=== PATIENT | female | born 2000 | race Caucasian/White ===

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

== ENCOUNTER 2021-06-16 00:16 | Emergency (ER) | payer OTHER ==
[~2021-06-16] VITALS: Ht 172.7 cm; Wt 84.0 kg
[~2021-06-16 00:16] MED LIST changes: +FLUC100T7 PO; +SULF1TAB24 PO
--- NOTE | 2021-06-16 00:18 | PHYS DOC ---
Past History Past Medical History: Asthma, UTI Past Surgical History: No Surgical History Smoking: Non-smoker Alcohol Use: None Drug Use: None General Adult HPI: HPI: "... I think I have another UTI.. discomfort lower pelvic area... I feels like when I had a UTI before... " Patient is a 20 year old female who presents with above hx and complaints dysuria. Symptoms are similar to previous UTI. Patient denies any vaginal discharge or fears of STD. No history of suppression. No history of travel history of significant ll contacts. Has not had COVID vaccination or flu vaccination. Has had meningitis vaccination. Has not had a Pneumovax vaccination. Review of Systems: Review of Systems: Constitutional: Denies fever or chills Eyes: Denies change in visual acuity HENT: Denies nasal congestion or sore throat Respiratory: Denies cough or shortness of breath Cardiovascular: Denies chest pain or edema GI: Denies abdominal pain, nausea, vomiting, bloody stools or diarrhea : Complains of dysuria Musculoskeletal: Denies back pain or joint pain Integument: Denies rash Neurologic: Denies headache, focal weakness or sensory changes Endocrine: Denies polyuria or polydipsia Lymphatic: Denies swollen glands Psychiatric: Denies depression or anxiety Family History: Family History: Noncontributory to presentation Current Medications: Current Meds: See nursing for home meds Allergies: Allergies: Allergies Coded Allergies Type Severity Reaction Last Updated Verified cephalexin Allergy Intermediate 07/07/19 Yes Physical Exam: PE: Constitutional: Well developed, well nourished, no acute distress, non-toxic appearance. [] HENT: Normocephalic, atraumatic, bilateral external ears normal, oropharynx moist, no oral exudates, nose normal. [] Eyes: PERRLA, EOMI, conjunctiva normal, no discharge. [] Neck: Normal range of motion, no tenderness, supple, no stridor. [] Cardiovascular:Heart rate regular rhythm, no murmur [] Lungs & Thorax: Bilateral breath sounds clear to auscultation [] Abdomen: Bowel sounds normal, soft, no tenderness, no masses, no pulsatile masses. Mild suprapubic tenderness. Skin: Warm, dry, no erythema, no rash. [] Back: No tenderness, no CVA tenderness. [] Extremities: No tenderness, no cyanosis, no clubbing, ROM intact, no edema. [] Neurologic: Alert and oriented X 3, normal motor function, normal sensory function, no focal deficits noted. [] Psychologic: Affect normal, judgement normal, mood normal. [] EKG: EKG: [] Radiology/Procedures: Radiology/Procedures: [] Heart Score: C/O Chest Pain: N/A Risk Factors: Risk Factors: DM, Current or recent (<one month) smoker, HTN, HLP, family history of CAD, obesity. Risk Scores: Score 0 - 3: 2.5% MACE over next 6 weeks - Discharge Home Score 4 - 6: 20.3% MACE over next 6 weeks - Admit for Clinical Observation Score 7 - 10: 72.7% MACE over next 6 weeks - Early Invasive Strategies Course & Med Decision Making: Course & Med Decision Making Pertinent Labs and Imaging studies reviewed. (See chart for details) Push vitamin C drinks. Push fluids. Take Tylenol and ibuprofen for discomfort. Take Bactrim DS twice a day. Follow-up urine cultures. After completing Bactrim take Diflucan 100 mg daily for 3 days. Follow-up primary care. Return if any concerns. Impression: 1. Dysuria [] Dragon Disclaimer: Dragon Disclaimer: This electronic medical record was generated, in whole or in part, using a voice recognition dictation system. Departure Departure: Referrals: SERGIO ZHU (PCP) Scripts Fluconazole (DIFLUCAN) 100 Mg Tablet 100 MG PO DAILY for post antibiotics, #3 TAB Prov: KEDAR GONZALES MD 06/16/21 Sulfamethoxazole/Trimethoprim (BACTRIM DS TABLET) 1 Each Tablet 1 TAB PO BID for UTI for 7 Days, #14 TAB 0 Refills Prov: KEDAR GONZALES MD 06/16/21 KEDAR GONZALES MD Jun 16, 2021 00:18
[2021-06-16 00:20] VITALS: BP 121/73
[2021-06-16 01:18] LABS: U PREG PATIENT NEGATIVE (NEG)
[2021-06-16 01:23] LABS: BARBITURATES NEG (NEG); BENZODIAZEPINES NEG (NEG); CANNABINOIDS NEG (NEG); COCAINE NEG (NEG); METHADONE NEG (NEG); OPIATES NEG (NEG); PHENCYCLIDINE NEG (NEG)
[2021-06-16 01:28] LABS: BACTERIA,URINE FEW /HPF (0-FEW); BILIRUBIN,URINE NEG (NEG); CLARITY,URINE CLEAR; COLOR,URINE YELLOW; GLUCOSE,URINE NEG (NEG); NITRITE,URINE NEG (NEG); RBC,URINE 0 /HPF (0-2); SQUAMOUS EPITHELIAL CELL,UR OCC /LPF; UROBILINOGEN,URINE 0.2 mg/dL (0.2 mg/dL); WBC,URINE OCC /HPF (0-4)
[2021-06-16] MEDS ORDERED: SULF1TAB24 PO (01:28)
[2021-06-16] MEDS ORDERED: FLUC100T7 PO (01:28)
[2021-06-16 01:29] LABS: AMPHETAMINE/METHAMPHETAMINE NEG (NEG)
[2021-06-16] MEDS ORDERED: PHENAZOPYRIDINE 200 MG TABLET. PO ONE (02:00)
[2021-06-16] MEDS ORDERED: SMZ/TMP 800/160MG TABLET. PO ONE (02:00)
== END 2021-06-16 01:44 | disposition home or self-care (01) ==
LOC: ER 00:16
DX: R30.0 Dysuria (principal); J45.909 Unspecified asthma, uncomplicated; Z87.440 Personal history of urinary (tract) infections; Z88.1 Allergy status to other antibiotic agents
CPT/HCPCS: 36415; 80307; 81001; 81025; 99283